=== PATIENT | female | born 1970 | race Caucasian/White ===

== ENCOUNTER → 2017-02-02 | Outpatient (CLI) | payer BC ==
[~2017-02-02] MED LIST: FLEXERIL10 MG PO; LEVOTHYROXINE112 MCG PO; LORAZEPAM0.5 MG PO; MOTRIN800 MG PO; PAROXETINE HCL10 MG PO
== END | disposition home or self-care (01) ==
LOC: NUC 10:52
DX: R10.9 Unspecified abdominal pain (principal)
CPT/HCPCS: 78227; A9537; J2805

== ENCOUNTER → 2017-03-07 | Outpatient (CLI) | payer BC ==
[~2017-03-07] MED LIST changes: +SODIUM CHLORIDE1 G1 PO
[2017-03-07 14:26] LABS: HEMATOCRIT 38.1 % (36.0-46.0); MCH 30.4 PG (29.0-34.0); MCHC 34.9 G/DL (30.0-36.0); MCV 87.2 FL (83-99); MEAN PLAT.VOLUME 9.2 uM^3 (9.5-12.4); PLATELET COUNT 263 K/uL (156-360); RBC DIS.WIDTH-CV 13.1 % (11.8-14.6); RBC DIS.WIDTH-SD 41.6 % (39-53); RED BLOOD COUNT 4.37 M/uL (3.80-5.20); WHITE BLOOD COUNT 7.2 K/uL (4.1-10.2)
[2017-03-07 14:36] LABS: PROTHROMBIN TIME 10.6 (9.2-11.2); PTT 30.6 (25-32)
[2017-03-07 14:49] LABS: ANION GAP 7 MEQ/L (2-14); CHLORIDE 97 MEQ/L (99-109); POTASSIUM 4.1 MEQ/L (3.7-5.4); SAMPLE HEMOLYSIS CHECK 0; SAMPLE ICTERIC CHECK 0; SAMPLE LIPEMIA CHECK 0; SODIUM 129 MEQ/L (136-147)
[2017-03-07 14:55] LABS: GFR ESTIMATE (CALCULATED) > 59 mL/min/; GLUCOSE 91 mg/dL (70-99); UREA NITROGEN (BUN) 19 mg/dL (9-23)
== END | disposition home or self-care (01) ==
LOC: AMB 13:24
PROVIDERS: Anesthesiology
DX: C34.01 Malignant neoplasm of right main bronchus (principal); F41.9 Anxiety disorder, unspecified; E03.9 Hypothyroidism, unspecified; K21.9 Gastro-esophageal reflux disease without esophagitis; F17.210 Nicotine dependence, cigarettes, uncomplicated
CPT/HCPCS: 80048; 85027; 85610; 85730; 86021 90; 87070; 87116; 87205; 87206; 88108; 88173; J0461; J2175; J2250; J2550; J3010

== ENCOUNTER 2017-03-28 13:48 | Emergency (ER) | payer BC ==
[~2017-03-28] VITALS: Ht 180.3 cm; Wt 78.8 kg
[2017-03-28 14:12] LABS: HEMATOCRIT 41.3 % (36.0-46.0); MCH 30.5 PG (29.0-34.0); MCHC 34.9 G/DL (30.0-36.0); MCV 87.5 FL (83-99); MEAN PLAT.VOLUME 9.5 uM^3 (9.5-12.4); PLATELET COUNT 191 K/uL (156-360); RBC DIS.WIDTH-CV 12.6 % (11.8-14.6); RBC DIS.WIDTH-SD 40.5 % (39-53); RED BLOOD COUNT 4.72 M/uL (3.80-5.20); WHITE BLOOD COUNT 5.2 K/uL (4.1-10.2)
[2017-03-28 14:23] LABS: CHLORIDE 99 mEq/L (99-109); POTASSIUM 4.4 mEq/L (3.7-5.4); SODIUM 135 mEq/L (136-147)
[2017-03-28 14:25] LABS: GLUCOSE 95 mg/dL (70-99)
[2017-03-28 14:29] LABS: GFR ESTIMATE (CALCULATED) > 59 mL/min/
[2017-03-28 14:37] LABS: TROP-I INTERPRETATION NEGATIVE; TROPONIN-I < 0.01 ng/mL (0.0-0.30)
[2017-03-28 15:21] LABS: UREA NITROGEN (BUN) 33 mg/dL (9-23)
[2017-03-28 15:22] LABS: ANION GAP 11 MEQ/L (2-14)
[2017-03-28 16:37] LABS: SERUM ETHYL ALCOHOL < 10 mg/dL
[2017-03-28 18:26] VITALS: BP 148/69
== END 2017-03-28 18:27 | disposition home or self-care (01) ==
LOC: EME 13:48
PROVIDERS: Physician Assistant
DX: R06.02 Shortness of breath (principal); C34.11 Malignant neoplasm of upper lobe, right bronchus or lung; Z79.899 Other long term (current) drug therapy; K21.9 Gastro-esophageal reflux disease without esophagitis; E03.9 Hypothyroidism, unspecified; Z87.891 Personal history of nicotine dependence
CPT/HCPCS: 71020; 71275; 80048; 84484; 85027; 85379; 93005; 99281; 99284; G0480; J7030

== ENCOUNTER 2017-03-30 23:59 | Emergency (ER) | payer BC ==
[~2017-03-30] VITALS: Ht 180.3 cm; Wt 81.1 kg
[2017-03-31 02:13] LABS: HEMATOCRIT 32.5 % (36.0-46.0); INTER. NORMALIZED RATIO 0.9; MCH 30.4 PG (29.0-34.0); MCHC 34.2 G/DL (30.0-36.0); NRBC (%) 0.8 /100 WBC (0-0); PROTHROMBIN TIME 10.2 SEC (10.2-12.9); RBC DIS.WIDTH-CV 12.8 % (11.8-14.6); WHITE BLOOD COUNT 2.5 K/uL (4.1-10.2)
[2017-03-31 02:15] LABS: PTT 25.3 SEC (25-37)
[2017-03-31 02:17] LABS: CHLORIDE 103 mEq/L (99-109); POTASSIUM 4.2 mEq/L (3.7-5.4); SODIUM 138 mEq/L (136-147)
[2017-03-31 02:18] LABS: GLUCOSE 100 mg/dL (70-99)
[2017-03-31 02:20] LABS: ANION GAP 8 MEQ/L (2-14)
[2017-03-31 02:22] LABS: GFR ESTIMATE (CALCULATED) > 59 mL/min/
[2017-03-31 02:23] LABS: UREA NITROGEN (BUN) 28 mg/dL (9-23)
[2017-03-31 03:09] LABS: RED BLOOD COUNT 3.65 M/uL (3.80-5.20)
[2017-03-31 03:11] LABS: EOSINOPHIL COUNT 0.1 K/uL (0-0.3); IMMATURE GRANULOCYTE (%) 0.8 % (0.0-0.7); INSTRUMENT ABS NEUTROPHIL CT 0.7 K/uL; LYMPHOCYTE COUNT 1.7 K/uL (1.0-2.8); MEAN PLAT.VOLUME 9.3 uM^3 (9.5-12.4); MONOCYTE COUNT 0.1 K/uL (0-0.8); NEUTROPHIL (%) 28.7 % (45-76); NEUTROPHIL COUNT 0.7 K/uL (1.8-6.4); PLAT.SUFFICIENCY DECREASED
[2017-03-31 03:13] LABS: PLATELET COUNT 103 K/uL (156-360)
[2017-03-31] MEDS ORDERED: XARELTO15 MG PO (03:30)
[2017-03-31 03:35] VITALS: BP 141/83
== END 2017-03-31 03:46 | disposition home or self-care (01) ==
LOC: EME 23:59
PROVIDERS: Emergency Medicine
DX: I82.622 Acute embolism and thrombosis of deep veins of left upper extremity (principal); C34.90 Malignant neoplasm of unspecified part of unspecified bronchus or lung; Z79.899 Other long term (current) drug therapy; E03.9 Hypothyroidism, unspecified; K21.9 Gastro-esophageal reflux disease without esophagitis; Z87.891 Personal history of nicotine dependence
CPT/HCPCS: 80048; 85025; 85610; 85730; 93971; 99281; 99284

== ENCOUNTER 2017-10-27 15:19 | Observation (INO) | payer BC ==
[~2017-10-27] VITALS: Ht 177.8 cm; Wt 80.9 kg
[~2017-10-27 15:19] MED LIST changes: +CLARITIN,ALAVAR10 MG PO; +TRAMADOL HCL50 MG PO; +XARELTO15 MG PO
[2017-10-27 16:04] LABS: INTER. NORMALIZED RATIO 1.3
[2017-10-27 16:06] LABS: AMYLASE 46 IU/L (1-118)
[2017-10-27 16:07] LABS: PTT 31.4 SEC (25-37)
[2017-10-27 16:07] LABS: BASOPHIL (%) 0.7 % (0-1); BASOPHIL COUNT 0.1 K/uL (0-0.1); EOSINOPHIL COUNT 0.1 K/uL (0-0.3); HEMATOCRIT 39.7 % (36.0-46.0); HEMOGLOBIN 14.1 G/DL (11.9-15.5); IMMATURE GRANULOCYTE (%) 0.3 % (0.0-0.7); LYMPHOCYTE (%) 11.7 % (15-42); LYMPHOCYTE COUNT 0.8 K/uL (1.0-2.8); MCH 32.3 PG (29.0-34.0); MCHC 35.5 G/DL (30.0-36.0); MCV 90.8 FL (83-99); MONOCYTE (%) 6.9 % (3-12); MONOCYTE COUNT 0.5 K/uL (0-0.8); NEUTROPHIL (%) 78.4 % (45-76); NEUTROPHIL COUNT 5.4 K/uL (1.8-6.4); PLATELET COUNT 241 K/uL (156-360); RBC DIS.WIDTH-CV 12.8 % (11.8-14.6); RBC DIS.WIDTH-SD 42.7 % (39-53); RED BLOOD COUNT 4.37 M/uL (3.80-5.20); WHITE BLOOD COUNT 6.9 K/uL (4.1-10.2)
[2017-10-27 16:09] LABS: CHLORIDE 101 mEq/L (99-109); POTASSIUM 4.7 mEq/L (3.7-5.4); SODIUM 134 mEq/L (136-147)
[2017-10-27 16:11] LABS: GLUCOSE 108 mg/dL (70-99)
[2017-10-27 16:15] LABS: LIPASE 19 U/L (1.0-51.0)
[2017-10-27 16:15] LABS: CREATININE 0.9 mg/dL (0.6-1.3); GFR ESTIMATE (CALCULATED) > 59 mL/min/
[2017-10-27 16:16] LABS: UREA NITROGEN (BUN) 20 mg/dL (9-23)
[2017-10-27 16:20] LABS: TROP-I INTERPRETATION NEGATIVE; TROPONIN-I < 0.01 ng/mL (0.0-0.30)
[2017-10-27 16:50] LABS: APPEARANCE CLEAR ((CLEAR)); BILIRUBIN NEGATIVE; BLOOD NEGATIVE; COLOR YELLOW ((YELLOW)); GLUCOSE (STRIP) NEGATIVE; KETONES NEGATIVE; LEUKOCYTES NEGATIVE; NITRITE NEGATIVE; PROTEIN (STRIP) NEGATIVE; UCUL ADDED? NO; UROBILINOGEN 0.2 MG/DL (0.2-1.0)
[2017-10-27 16:55] LABS: HDL CHOLESTEROL 58 MG/DL (Desirable>=50); LDL CHOLESTEROL 174 mg/dL (Desirable<100); NON-HDL CHOLESTEROL 203 mg/dL (Desirable<160); TOTAL CHOLESTEROL 261 mg/dL (Desirable<200); TRIGLYCERIDES 143 MG/DL (Normal: <150)
[2017-10-27 17:14] LABS: AMPHETAMINE NEGATIVE (500 ng/mL); BARBITURATES NEGATIVE (200 ng/mL); BENZODIAZEPINES PRESUMPTIVE POSITIVE (150 ng/mL); BUPRENORPHINE NEGATIVE (10 ng/mL); COCAINE NEGATIVE (150 ng/mL); METHADONE NEGATIVE (200 ng/mL); METHAMPHETAMINE NEGATIVE (500 ng/mL); OPIATES (MORPHINE) PRESUMPTIVE POSITIVE (100 ng/mL); OXYCODONE NEGATIVE (100 ng/mL); PHENCYCLIDINE NEGATIVE (25 ng/mL); PROPOXYPHENE NEGATIVE (300 ng/mL); THC CANNABINOIDS NEGATIVE (50 ng/mL); TRICYCLIC ANTIDEPRESSANTS NEGATIVE (300 ng/mL)
[2017-10-27 17:43] LABS: BENZODIAZEPINES, URINE SCREEN Negative (200 ng/mL)
[2017-10-27] MEDS ORDERED: ATIVAN0.5 MG PO (18:36)
[2017-10-27] MEDS ORDERED: FISH OIL 1,0001 EAC7 PO (18:39)
[2017-10-27] MEDS ORDERED: B-121000 MC2 PO (18:41)
[2017-10-27] MEDS ORDERED: XARELTO20 MG PO (18:41)
[2017-10-27] MEDS ORDERED: VITAMIN D31000 UNI2 PO (18:41)
[2017-10-27] MEDS ORDERED: AUGMENTIN875 MG PO (18:42)
[2017-10-27] MEDS ORDERED: ARICEPT5 MG PO (18:42)
[2017-10-27] MEDS ORDERED: TYLENOL EXTRA500 MG PO (18:43)
[2017-10-27] MEDS ORDERED: ALLEGRA ALLERG180 MG PO (18:43)
[2017-10-27] MEDS ORDERED: PERCOCET 5/31 TABLET PO (20:06)
[2017-10-27 21:23] VITALS: BP 104/51
[2017-10-27 21:26] LABS: THYROTROPIN (TSH) 0.59 MIU/L (0.4-5.5)
[2017-10-28 00:01] VITALS: BP 105/59
[2017-10-28 03:41] VITALS: BP 112/54
[2017-10-28 06:51] VITALS: BP 114/57
[2017-10-28 10:39] LABS: HEMOGLOBIN A1c (GLYCOHEMOGLOB) 5.6 % (Below 5.7)
[2017-10-28 12:27] VITALS: BP 120/58
[2017-10-28] MEDS ORDERED: LIPITOR20 MG PO (13:42)
[2017-10-28] MEDS ORDERED: LO-DOSE ASPIRIN81 M1 PO (13:43)
== END 2017-10-28 14:44 | disposition home or self-care (01) ==
LOC: EME 15:19 → 5WEST 19:53 → EDOF 19:53 → ENRESERV 19:59 → 5WEST 21:13
PROVIDERS: Emergency Medicine
DX: G45.9 Transient cerebral ischemic attack, unspecified (principal); Z86.718 Personal history of other venous thrombosis and embolism; Z79.01 Long term (current) use of anticoagulants; E03.9 Hypothyroidism, unspecified; F41.9 Anxiety disorder, unspecified; C34.90 Malignant neoplasm of unspecified part of unspecified bronchus or lung; C79.31 Secondary malignant neoplasm of brain; Z90.710 Acquired absence of both cervix and uterus; Z82.49 Family history of ischemic heart disease and other diseases of the circulatory system; Z80.1 Family history of malignant neoplasm of trachea, bronchus and lung; Z87.891 Personal history of nicotine dependence; Z91.048 Other nonmedicinal substance allergy status; Z88.1 Allergy status to other antibiotic agents
CPT/HCPCS: 70450; 70496; 70498; 70551; 70553; 80048; 80061; 81003; 82150; 83036; 83690; 84443; 84484; 84999; 85025; 85610; 85730; 93005; 99281; 99285; G0378; J7030